=== PATIENT | male | born 2000 | race Two or more races ===

== ENCOUNTER 2022-04-23 15:06 | Emergency (ER) | payer SELFPAY ==
[~2022-04-23] VITALS: Ht 172.7 cm; Wt 76.0 kg
[2022-04-23 15:11] VITALS: BP 143/91
[2022-04-23] MEDS ORDERED: BO1 TP (18:03)
[2022-04-23] MEDS ORDERED: IBUP-2028 MT (18:03)
[2022-04-23] MEDS ORDERED: BACITRACIN ZINC OINT UDPKT TOP ONE (19:00)
== END 2022-04-23 19:02 | disposition home or self-care (01) ==
LOC: ER 15:06
DX: T22.211A Burn of second degree of right forearm, initial encounter (principal); T31.0 Burns involving less than 10% of body surface; X12.XXXA Contact with other hot fluids, initial encounter; Y93.89 Activity, other specified; Y92.89 Other specified places as the place of occurrence of the external cause; Y99.8 Other external cause status
CPT/HCPCS: 16020; 99282